=== PATIENT | female | born 1950 ===

== ENCOUNTER 2016-06-23 20:56 | Emergency (ER) | payer MEDICARE, MEDICAID ==
[2016-06-23 21:19] VITALS: BP 116/75; PULSE 67; TEMP 97.7; O2SAT 99
--- NOTE | 2016-06-23 23:18 | C.PDOC ---
History Of Present Illness A 65 year old female presents to the emergency room with complaints of intermittent bilateral knee pain and right shoulder pain for 2 years. Patient has a history of Arthritis. Patient has been given Ortho followup, but never went and has not taken any pain medications. Patient denies any trauma/injury, numbness, weakness, any sensory changes, or any other complaints. Time Seen by Provider: 06/23/16 22:08 Chief Complaint (Nursing): Lower Extremity Problem/Injury History Per: Patient, Family History/Exam Limitations: language barrier Onset/Duration Of Symptoms: Intermittent Episodes (Over 2 years) Current Symptoms Are (Timing): Still Present Severity: Mild Recent travel outside of the [place]: No - Knee Description Of Injury: Other (Chronic intermittent bilateral knee pain for 2 yrs ) Alleviating Factor(s): denies: OTC Pain Medication Past Medical History Reviewed: Historical Data, Nursing Documentation, Vital Signs Vital Signs: Last Vital Signs Temp 97.7 F 06/23/16 21:13 Pulse 67 06/23/16 21:13 Resp 20 06/23/16 23:25 BP 116/75 06/23/16 21:13 Pulse Ox 99 06/24/16 01:28 - Medical History PMH: Arthritis Denies: Diabetes, HTN Surgical History: Cholecystectomy (8 year ago) - [facility] Procedures INJECT/INFUSE NEC (03/30/14) Family History: States: Unknown Family Hx - Social History Hx Tobacco Use: No Hx Alcohol Use: No Hx Substance Use: No - Immunization History Hx Tetanus Toxoid Vaccination: No Hx Influenza Vaccination: No Hx Pneumococcal Vaccination: No Review Of Systems Except As Marked, All Systems Reviewed And Found Negative. Constitutional: Negative for: Fever, Chills Gastrointestinal: Negative for: Nausea, Vomiting, Diarrhea Musculoskeletal: Positive for: Shoulder Pain (Right shoulder pain), Other ( Bilateral knee pain) Neurological: Negative for: Headache, Dizziness Physical Exam - Physical Exam Appears: Well, Non-toxic, No Acute Distress Skin: Normal Color, Warm, Dry, No Rash Head: Atraumatic, Normacephalic Eye(s): bilateral: Normal Inspection, EOMI Nose: Normal Oral Mucosa: Moist Chest: Symmetrical Cardiovascular: Rhythm Regular Respiratory: Normal Breath Sounds Extremity: Normal ROM, Tenderness (Diffuse tenderness - left side more than right of knee. Anterior tenderness of the right shoulder. Pain of right shoulder aggravated with movement past 90 degrees.), No Calf Tenderness, Capillary Refill (<2 sec), Swelling (Diffuse swelling of the left knee.) Extremity: Bilateral: Normal Color And Temperature, Normal ROM Pulses: Left Brachial: Normal, Right Brachial: Normal, Left Femoral: Normal, Right Femoral: Normal Neurological/Psych: Oriented x3, Normal Speech, Normal Cognition, Normal Motor, Normal Sensation Gait: Steady ED Course And Treatment ECG: Interpreted By Me, Viewed By Me ECG Rhythm: Sinus Bradycardia ECG Interpretation: Normal Rate From EC O2 Sat by Pulse Oximetry: 99 - Other Rad X-ray X-Ray: Interpreted by Me, Viewed By Me Interpretation: Knee X-ray Impression: As read by me; no fractures or dislocations. Positive DJD. Right Shoulder X-ray Impression: As read by me; no fractures or dislocations. Positive DJD. Progress Note: Patient given Toradol. On reassessment, patient is resting comfortably, with improvement of pain. Patient remains afebrile, with no bony tenderness, extremity numbness, or weakness. Patient is ambulatory in the emergency department. Patient was advised to follow up with Ortho in 1-2 days. Disposition - Disposition Referrals: Ramiro Ndiaye III, MD [Staff Provider] - [facility] [Outside] Disposition: HOME/ ROUTINE Disposition Time: 23:17 Condition: STABLE Additional Instructions: Vaya a nguyen mdico o la clnica en 2-5 kwon sin falta, para mas evaluacin. [place] los medicamentos rishi indicado. Volver a la raffy de emergencia en cualquier momento si los sntomas persisten o empeoran. Prescriptions: Naproxen [Naprosyn] 1 tab PO BID PRN #20 tab PRN Reason: Pain Instructions: Arthralgia (ED) Print Language: YI - Clinical Impression Clinical Impression: Arthralgia - Scribe Statement The provider has reviewed the documentation as recorded by the Scribe René Sosa All medical record entries made by the Scribe were at my direction and personally dictated by me. I have reviewed the chart and agree that the record accurately reflects my personal performance of the history, physical exam, medical decision making, and the department course for this patient. I have also personally directed, reviewed, and agree with the discharge instructions and disposition.
[2016-06-23 23:53] VITALS: RESP 20
--- NOTE | 2016-06-24 08:47 | RAD ---
PROCEDURE: Radiographs of the Right Shoulder HISTORY: trauma COMPARISON: No prior. FINDINGS: BONES: No evidence of acute fracture. JOINTS: Osteoarthritic changes seen at the right AC joint. No evidence of dislocation. SOFT TISSUES: Normal. OTHER FINDINGS: None. IMPRESSION: No evidence of acute fracture or dislocation. Osteoarthritic changes at the AC joint.
--- NOTE | 2016-06-24 11:27 | RAD ---
PROCEDURE: Bilateral Knee Radiographs. HISTORY: trauma COMPARISON: None. FINDINGS: BONES: Right Knee: No acute fracture. . Left Knee: Normal. No fracture. Sclerotic focus proximal left tibia uncertain etiology, significance. This may represent a bone island or less likely bony infarction JOINTS: Right Knee: Degenerative changes bilaterally left greater than right. Left knee: Mild degenerative change. SOFT TISSUES: Right Knee: Normal. Left Knee: Normal. JOINT EFFUSION: Right Knee: None. Left Knee: None. OTHER FINDINGS: None. IMPRESSION: No acute findings. Sclerotic focus proximal Left tibia. Follow-up advised.
--- NOTE | 2016-06-24 17:06 | CARD ---
APPROVED REPORT EKG Measurement Heart [id number] DC [id number] <Conclusion> Sinus bradycardia Otherwise normal ECG
== END 2016-06-23 23:25 | disposition home or self-care (01) ==
LOC: C.ER 20:56
DX: M25.562 Pain in left knee (principal); M25.561 Pain in right knee; M25.511 Pain in right shoulder
CPT/HCPCS: 73030; 73562; 93005; 96372; 99282; J1885

== ENCOUNTER 2017-02-26 23:36 | Emergency (ER) | payer MEDICARE, MEDICAID ==
[2017-02-26 23:56] VITALS: RESP 16
--- NOTE | 2017-02-27 01:41 | C.PDOC ---
History Of Present Illness 66 y/o female, 2 weeks s/p cardiac catheterization in right arm at [facility] c/o right arm pain that started 4 days after procedure, and worse tonight after folding laundry. pt reports pain to right shoulder area and feels like she has cramps in lower arm. no cp or sob. Time Seen by Provider: 02/27/17 00:08 Chief Complaint (Nursing): Upper Extremity Problem/Injury Past Medical History Vital Signs: Last Vital Signs Temp 98.4 F 02/27/17 02:41 Pulse 57 L 02/27/17 02:41 Resp 16 02/27/17 02:41 BP 112/77 02/27/17 02:41 Pulse Ox 99 03/02/17 08:36 - Medical History PMH: Arthritis Denies: Diabetes, HTN Surgical History: Cholecystectomy (8 year ago) - [facility] Procedures INJECT/INFUSE NEC (03/30/14) Family History: States: Unknown Family Hx - Social History Hx Tobacco Use: No Hx Alcohol Use: No Hx Substance Use: No - Immunization History Hx Tetanus Toxoid Vaccination: No Hx Influenza Vaccination: No Hx Pneumococcal Vaccination: No Physical Exam - Physical Exam Appears: Non-toxic, No Acute Distress Skin: Warm, Dry Neck: Supple Chest: No Deformity, No Tenderness Cardiovascular: Rhythm Regular, No Murmur Respiratory: No Decreased Breath Sounds Extremity: No Normal ROM (dec rom right shoulder), Tenderness (right shoulder), No Swelling (to right arm) Pulses: Right Carotid: Normal, Right Brachial: Normal, Right Radial: Normal Neurological/Psych: Oriented x3, Normal Speech, Normal Cognition, Normal Motor, Normal Sensation ED Course And Treatment O2 Sat by Pulse Oximetry: 99 Medical Decision Making Medical Decision Making: pt feeling better after mobic and tylenol. +radial, brachial and axillary pulses palpated, will d/c pt home with pmd and cards f/u Disposition Counseled Patient/Family Regarding: Studies Performed, Diagnosis, Need For Followup - Disposition Referrals: Nuris Cotter [Staff Provider] - Disposition: HOME/ ROUTINE Disposition Time: : Condition: STABLE Additional Instructions: Por favor evite levantar objetos pesados. Virgie meloxicam para el dolor. Si meloxicam no ayuda con el dolor (espere 2-3 horas despus de tomarlo). puedes probar Tylenol [place] un seguimiento con el Dr. Wellington y nguyen cardilogo. Regrese a la raffy de emergencias por cualquier sntoma peor, entumecimiento. hormigueo u otras preocupaciones. Please avoid heavy lifting. Take meloxicam for pain. If meloxicam not helping with pain (wait 2-3 hours after taking it),. you can try Tylenol. Follow up with Dr Wellington and your mail distributor. Return to ER for any worse symptoms, numbness. tingling or other concerns. Prescriptions: Acetaminophen [Tylenol 325mg tab] 650 mg PO Q6 #30 tab Forms: Gen Discharge Inst Pashto, [employer] [facility] (Pashto) Print Language: [place] R[place] - Clinical Impression Clinical Impression: Pain, arm, right
[2017-02-27 02:41] VITALS: BP 112/77; PULSE 57; TEMP 98.4
--- NOTE | 2017-02-27 10:43 | RAD ---
Right shoulder three views History: Pain. Comparison: None available. Findings Mild narrowing of the glenohumeral joint space. Mild productive change at the right greater tuberosity. No evidence of acute displaced fracture or dislocation. Moderate degenerative changes of the acromioclavicular joint space with bony spurring and hypertrophy. Impression: Degenerative changes. If pain persists, consider MRI
[2017-03-02 08:36] VITALS: O2SAT 99
== END 2017-02-27 02:41 | disposition home or self-care (01) ==
LOC: C.ER 23:36
DX: M79.601 Pain in right arm (principal)

== ENCOUNTER 2017-05-24 21:59 | Emergency (ER) | payer MEDICARE, MEDICAID ==
[2017-05-24 22:12] VITALS: BP 138/90; PULSE 70; TEMP 97.9; O2SAT 97
--- NOTE | 2017-05-24 22:47 | C.PDOC ---
History Of Present Illness 66 year old female presents to the ED for evaluation of right shoulder pain, onset 1 week ago. She denies any fall or injury. Patient took aspirin with minimal relief. Pain worsens with movement. Patient denies any numbness or tingling and is able to move all fingers. Time Seen by Provider: 05/24/17 22:14 Chief Complaint (Nursing): Upper Extremity Problem/Injury History Per: Patient History/Exam Limitations: no limitations Onset/Duration Of Symptoms: Days (x 1 week) Current Symptoms Are (Timing): Still Present Past Medical History Reviewed: Historical Data, Nursing Documentation, Vital Signs Vital Signs: Last Vital Signs Temp 97.9 F 05/24/17 22:08 Pulse 70 05/24/17 22:08 Resp 20 05/24/17 23:26 BP 138/90 05/24/17 22:08 Pulse Ox 97 05/24/17 23:06 - Medical History PMH: Arthritis Denies: Diabetes, HTN Surgical History: Cholecystectomy (8 year ago) - [facility] Procedures INJECT/INFUSE NEC (03/30/14) Family History: States: Unknown Family Hx - Social History Hx Tobacco Use: No Hx Alcohol Use: No Hx Substance Use: No - Immunization History Hx Tetanus Toxoid Vaccination: No Hx Influenza Vaccination: No Hx Pneumococcal Vaccination: No Review Of Systems Musculoskeletal: Positive for: Shoulder Pain (right) Neurological: Negative for: Weakness, Numbness Physical Exam - Physical Exam Appears: Well, Non-toxic, No Acute Distress Skin: Warm, Dry, No Rash Head: Atraumatic, Normacephalic Eye(s): bilateral: Normal Inspection Extremity: No Tenderness, No Deformity, No Swelling, Other (Pain with abduction of right arm) Pulses: Left Radial: Normal, Right Radial: Normal Neurological/Psych: Oriented x3, Normal Speech ED Course And Treatment O2 Sat by Pulse Oximetry: 97 (RA) Pulse Ox Interpretation: Normal Medical Decision Making Medical Decision Making: Impression: 66 year old with atraumatic right shoulder pain Initial Plan: * X-ray right shoulder * 30 mg Toradol IM Xray shows degenerative changes, no fracture or dislocation. Prior records reviewed and patient has been seen for similar shoulder pain in the past. On re- eval, patient reports pain is improving. I explained xray results to patient. Will give Rx. Advise follow up with PCP or orthopedic if pain persists Disposition Counseled Patient/Family Regarding: Diagnosis, Need For Followup, Rx Given - Disposition Referrals: Pilar Roberts MD [Medical Doctor] - Disposition: HOME/ ROUTINE Disposition Time: 23:04 Condition: GOOD Additional Instructions: Vaya a nguyen mdico o la clnica en 2-5 kwon sin falta, para mas evaluacin. [place] los medicamentos rishi indicado. Volver a la raffy de emergencia en cualquier momento si los sntomas persisten o empeoran. Prescriptions: Meloxicam 7.5 mg PO DAILY #20 tablet Instructions: Shoulder Pain (DC) Forms: [employer] (Indonesian) Print Language: UPPER SORBIAN - POA Present On Arrival: None - Clinical Impression Clinical Impression: Shoulder arthralgia - PA / BUSINESS SYSTEMS ANALYST / Resident Statement MD/DO has reviewed & agrees with the documentation as recorded. - Scribe Statement The provider has reviewed the documentation as recorded by the Scribe (Rama Mcfadden) All medical record entries made by the Scribe were at my direction and personally dictated by me. I have reviewed the chart and agree that the record accurately reflects my personal performance of the history, physical exam, medical decision making, and the department course for this patient. I have also personally directed, reviewed, and agree with the discharge instructions and disposition.
[2017-05-24 23:27] VITALS: RESP 20
--- NOTE | 2017-05-25 10:40 | RAD ---
PROCEDURE: Radiographs of the Right Shoulder HISTORY: pain for 1 week, no trauma COMPARISON: No prior. FINDINGS: BONES: No acute fracture or destructive bony lesion identified. JOINTS: Degenerative changes are advanced at the acromioclavicular joint and appear [id number] the glenohumeral joint. No subluxation or dislocation appreciable. SOFT TISSUES: Normal. OTHER FINDINGS: None. IMPRESSION: Degenerative changes as described above. No acute fracture or destructive bone lesion appreciable. No dislocation.
== END 2017-05-24 23:26 | disposition home or self-care (01) ==
LOC: C.ER 21:59
DX: M25.511 Pain in right shoulder (principal)
CPT/HCPCS: 73030; 96372; 99284; J1885

== ENCOUNTER 2017-10-13 12:38 | Emergency (ER) | payer MEDICARE, MEDICAID ==
[2017-10-13 12:49] VITALS: BMI 34.6
[2017-10-13 12:51] VITALS: BP 121/81; PULSE 77; RESP 18; TEMP 98.4; O2SAT 97
[2017-10-13] MEDS ORDERED: Lidocaine 5% Patch TD ONE ×2 (13:06→13:09)
--- NOTE | 2017-10-13 13:07 | C.PDOC ---
History Of Present Illness <Jama Lei - Last Filed: 10/13/17 14:01> <Jade Tee - Last Filed: 10/14/17 09:00> CC: Left knee pain and right shoulder joint pain Patient is a 66 year old female with past medical history of gastritis, who presents to the ED with complaints of left knee pain and right shoulder joint pain. Patient has been seen multiple times for left knee pain and right shoulder joint pain with imaging suggestive of sclerotic and arthritic changes/ mild degeneration. As per daughter, patient has received steroid injections in the past, which provided significant relief. Patient denies any other symptoms such as chest pain, palpitations, SOB, headache, nausea, vomiting, chills, abdominal pain, bilateral numbness/tingling. (Jama Lei) History Per: Patient, Family History/Exam Limitations: no limitations Onset/Duration Of Symptoms: Days, Gradual, Persistent Current Symptoms Are (Timing): Still Present Severity: Moderate Pain Scale Rating Of: 5 Recent travel outside of the [place]: No Additional History Per: Patient, Family - Hip Description Of Injury: denies: Fell, Tripped, Lost Balance, Fainted - Knee Description Of Injury: denies: Fell, Struck With Object, Struck Against Object, Twisted, Laceration Alleviating Factor(s): Other (Steriod injection ) <Jama Lei - Last Filed: 10/13/17 14:01> <Jade Tee - Last Filed: 10/14/17 09:00> Time Seen by Provider: 10/13/17 12:55 Chief Complaint (Nursing): Lower Extremity Problem/Injury Past Medical History - Medical History PMH: Arthritis, Gastritis Surgical History: Appendectomy - Social History Hx Tobacco Use: No Hx Alcohol Use: No Hx Substance Use: No <Jama Lei - Last Filed: 10/13/17 14:01> - Medical History PMH: Arthritis Denies: Diabetes, HTN Surgical History: Cholecystectomy (8 year ago) Family History: States: Unknown Family Hx - Social History Hx Tobacco Use: No Hx Alcohol Use: No Hx Substance Use: No - Immunization History Hx Tetanus Toxoid Vaccination: No Hx Influenza Vaccination: No Hx Pneumococcal Vaccination: No <Jade Tee - Last Filed: 10/14/17 09:00> Vital Signs: Last Vital Signs Temp 98.4 F 10/13/17 12:49 Pulse 77 10/13/17 12:49 Resp 18 10/13/17 12:49 BP 121/81 10/13/17 12:49 Pulse Ox 97 10/13/17 13:07 - [facility] Procedures INJECT/INFUSE NEC (03/30/14) Review Of Systems Constitutional: Negative for: Fever, Chills, Weakness Eyes: Negative for: Pain, Vision Change ENT: Negative for: Ear Pain, Ear Discharge, Nose Congestion, Mouth Pain Cardiovascular: Negative for: Chest Pain, Palpitations, Orthopnea Gastrointestinal: Negative for: Nausea, Vomiting, Abdominal Pain, Diarrhea Musculoskeletal: Positive for: Shoulder Pain (right shoulder joint pain ), Other (Left knee pain ) Neurological: Negative for: Weakness, Numbness, Confusion, Dizziness <Jama Lei - Last Filed: 10/13/17 14:01> Physical Exam - Physical Exam Appears: No Acute Distress Skin: Normal Color Head: Atraumatic, Normacephalic Neck: Normal, Normal ROM Cardiovascular: Rhythm Regular Respiratory: Normal Breath Sounds, No Decreased Breath Sounds Gastrointestinal/Abdominal: Normal Exam, Bowel Sounds, Soft Extremity: No Normal ROM, No Calf Tenderness, No Swelling, Other (Negative mariella ' sign. No tenderness noted upon palpation of the left knee joint and right shoulder joint ) Extremity: Bilateral: Atraumatic Pulses: Left Dorsalis Pedis: Normal Neurological/Psych: Oriented x3, Normal Speech, Normal Cognition <Jama Lei - Last Filed: 10/13/17 14:01> ED Course And Treatment O2 Sat by Pulse Oximetry: 97 - Other Rad venous doppler X-Ray: Viewed By Me (Neg for acute DVT as per US tech) <Jade Tee - Last Filed: 10/14/17 09:00> Disposition Discussed With : Jade Tee - Disposition Disposition Time: 13:36 <Jama Lei - Last Filed: 10/13/17 14:01> <Jade Tee - Last Filed: 10/14/17 09:00> - Disposition Disposition: HOME/ ROUTINE Condition: GOOD Additional Instructions: Please discharge patient home Please follow up with our PMD, Dr. Gracia in 1-5 days Please follow up with [facility], Dr. Raymond Glynn or Dr. Jimbo Coronel for pain management., . Please call ahead of time to ensure that your health insurance can be used or your can obtain a referral to pain management from your primary care physician, Dr. Gracia Please use lidoderm patch to affected joint Please continue to mobilized all joints Please take care Prescriptions: Lidocaine 5% [Lidoderm] 1 ea TD ONCE PRN #10 patch PRN Reason: Pain, Moderate (4-7) Forms: [employer] [facility] (Chinese), General Discharge Instructions - Clinical Impression Clinical Impression: Arthritis, multiple joint involvement
--- NOTE | 2017-10-16 10:31 | VASCLAB ---
Date of service: 10/13/2017 PROCEDURE: Left Lower Extremity Venous Duplex Exam. HISTORY: Left calf pain PRIORS: None. TECHNIQUE: Left common femoral, femoral, popliteal and posterior tibial, peroneal and great saphenous veins were evaluated. Flow was assessed with color Doppler, compressibility, assessment of phasic flow and augmentation response. Report prepared by LYNNETTE Benoit FINDINGS: LEFT: 1. Common Femoral Vein: 1.1. Compressibility - Fully compressible: Thrombus - None : Flow - Phasic: Augmentation -Normal: Reflux - None. 2. Femoral Vein: 2.1. Compressibility - Fully compressible: Thrombus - None: Flow - Phasic: Augmentation -Normal: Reflux - None. 3. Popliteal Vein: 3.1. Compressibility - Fully compressible: Thrombus - None: Flow - Phasic: Augmentation -Normal: Reflux - None. 4. Posterior Tibial Vein: 4.1. Compressibility - Fully compressible: Thrombus - None: Flow - Phasic: Augmentation -Normal: Reflux - None. 5. Peroneal Vein: 5.1. Compressibility - Fully compressible: Thrombus - None: Flow - Phasic: Augmentation -Normal: Reflux - None. 6. Great Saphenous Vein: 6.1. Compressibility - Fully compressible: Thrombus - None: Flow - Phasic: Augmentation - Normal: Reflux - None. OTHER FINDINGS: IMPRESSION: No evidence of deep or superficial vein thrombosis of the left lower extremity with excellent venous flow. Normal valve function noted of the left side. Normal venous flow noted in the right common femoral vein.
== END 2017-10-13 14:18 | disposition home or self-care (01) ==
LOC: C.ER 12:38
DX: M17.12 Unilateral primary osteoarthritis, left knee (principal); M19.011 Primary osteoarthritis, right shoulder

== ENCOUNTER 2017-11-17 12:55 | Emergency (ER) | payer MEDICARE, MEDICAID ==
[2017-11-17 13:22] VITALS: BMI 34.2
[2017-11-17 13:24] VITALS: BP 130/81; PULSE 67; TEMP 97.5; O2SAT 96
--- NOTE | 2017-11-17 13:39 | C.PDOC ---
History Of Present Illness 67-year-old female presents to the ED complaining of pain to the right side of her ribs, onset 2 days ago. Patient initially believed she was bit by a bug because she noticed a bump in the area. She then noted the bumps began spreading across her chest. Patient reports the area is painful. Otherwise she denies any cough, numbness, weakness, tingling, pleuritic pain, or shortness of breath. Time Seen by Provider: 11/17/17 13:30 Chief Complaint (Nursing): Abnormal Skin Integrity History Per: Patient History/Exam Limitations: no limitations Onset/Duration Of Symptoms: Days Current Symptoms Are (Timing): Still Present Past Medical History Reviewed: Historical Data, Nursing Documentation, Vital Signs Vital Signs: Last Vital Signs Temp 97.5 F L 11/17/17 13:21 Pulse 67 11/17/17 13:21 Resp 20 11/17/17 13:21 BP 130/81 11/17/17 13:21 Pulse Ox 96 11/17/17 13:21 - Medical History PMH: Arthritis, Gastritis Surgical History: Appendectomy, Cholecystectomy (8 year ago) - [facility] Procedures INJECT/INFUSE NEC (03/30/14) Family History: States: Unknown Family Hx - Social History Hx Tobacco Use: No Hx Alcohol Use: No Hx Substance Use: No - Immunization History Hx Tetanus Toxoid Vaccination: No Hx Influenza Vaccination: No Hx Pneumococcal Vaccination: No Review Of Systems Constitutional: Negative for: Fever Cardiovascular: Positive for: Other (pain to right ribs). Negative for: Palpitations Respiratory: Negative for: Cough, Shortness of Breath, Wheezing Musculoskeletal: Negative for: Arm Pain Skin: Positive for: Lesions Neurological: Negative for: Weakness, Numbness, Incoordination Physical Exam - Physical Exam Appears: Well, Non-toxic, No Acute Distress Skin: Warm, Dry, Rash (clustered vesicles to the right lateral chest wall, with a few scattered vesicles radiating toward center of chest, does not cross midline) Head: Atraumatic, Normacephalic Eye(s): bilateral: Normal Inspection Oral Mucosa: Moist Neck: Normal ROM, Supple Chest: No Tenderness Cardiovascular: Rhythm Regular, No Murmur Respiratory: Normal Breath Sounds, No Rales, No Rhonchi, No Wheezing Extremity: Bilateral: Normal Color And Temperature, Normal ROM Pulses: Left Radial: Normal, Right Radial: Normal Neurological/Psych: Oriented x3, Normal Speech Gait: Steady ED Course And Treatment O2 Sat by Pulse Oximetry: 96 (RA) Pulse Ox Interpretation: Normal Medical Decision Making Medical Decision Making: Impression: [place] Initial Plan: Patient provided with prescriptions for Acyclovir, Lidocaine cream, and Meloxicam. Patient remains afebrile alert and oriented with stable vital signs during ER evaluation. Patient feels comfortable going home and will be discharged. Patient given follow up instructions. Instructed to return to ER if symptoms worsen or new symptoms arise. Disposition Counseled Patient/Family Regarding: Diagnosis, Need For Followup, Rx Given - Disposition Referrals: [facility] [Outside] [facility]] Disposition: HOME/ ROUTINE Disposition Time: 13:39 Condition: GOOD Additional Instructions: Usted tiene erupcin herpes zster causado por virus [place] medicamentos antivirales por awa semana [place] medicamento para el dolor segn sea necesario aplicar crema en el desiree para el dolor segn sea necesario Prescriptions: Acyclovir [Zovirax] 800 mg PO 5XD 7 Days #35 tab Lidocaine 5 gm TP Q12 PRN #1 cream..g. PRN Reason: Pain, Moderate (4-7) Meloxicam [Mobic] 7.5 mg PO DAILY #30 tab Instructions: Shingles (DC) Print Language: PERUVIAN - POA Present On Arrival: None - Clinical Impression Clinical Impression: Herpes zoster - PA / CONTINUOUS IMPROVEMENT INTERN / Resident Statement MD/DO has reviewed & agrees with the documentation as recorded. - Scribe Statement The provider has reviewed the documentation as recorded by the Scribe (Rama Mcfadden) All medical record entries made by the Scribe were at my direction and personally dictated by me. I have reviewed the chart and agree that the record accurately reflects my personal performance of the history, physical exam, medical decision making, and the department course for this patient. I have also personally directed, reviewed, and agree with the discharge instructions and disposition.
[2017-11-17 14:06] VITALS: RESP 18
== END 2017-11-17 14:07 | disposition home or self-care (01) ==
LOC: C.ER 12:55
DX: B02.9 Zoster without complications (principal)